=== PATIENT | female | born 1995 | race Caucasian/White ===

== ENCOUNTER 2016-09-22 10:59 | Emergency (ER) | payer OTHER ==
--- OUTSIDE RECORDS SUMMARY | 2016-09-22 12:02 | XMS REPORT | Continuity of Care Document ---
:1995 Author Organization [place] [address] Care Team Providers Name Role Phone Cristine Alicea Primary Care Provider [phone] Source Comments This disclosure is being made pursuant to the [employer] program and maynot contain all information available regarding this patient.[facility] Active Allergies and Adverse Reactions No Known Allergies Current Medications Be aware that medications may not be up to date as of this document. Alwaysverify current medications with the patient. No known medications Active Problems Problem Noted Date Psychosis 12/27/2011 Methamphetamine abuse 12/27/2011 Social History Tobacco Use Types Packs/Day Years Used Date Current Every Day Smoker Cigarettes 0.5 5 Alcohol Use Drinks/Week oz/Week Comments Yes "once in a while" Last Filed Vital Signs Vital Sign Reading Time Taken Blood Pressure 100/50 12/28/2011 8:00 AM CDT Pulse 88 12/29/2011 9:00 AM CDT Temperature 36.2 C (97.2 F) 12/29/2011 9:00 AM CDT Respiratory Rate 16 12/29/2011 9:00 AM CDT Height 1.6 m (5' 2.99") 12/23/2011 4:53 PM CDT Weight 51.846 kg (114 lb 4.8 oz) 12/23/2011 4:53 PM CDT Body Mass Index 20.25 12/23/2011 4:53 PM CDT Oxygen Saturation 98% 12/23/2011 1:18 PM CDT Plan of Care Health Maintenance Due Date Last Done Comments HPV Vaccine ([id number],M: 9-22) (1 of 3 - Female/Unknown 2004 3 Dose Series) Chlamydia Screening 2009 Tetanus/Pertussis (1 - Tdap) 2012 Pap Smear 2014 Retired-INFLUENZA VACCINE 11/13/2015 Results from Last 3 Months Not on file Insurance Payer Benefit Plan / Group Subscriber ID Type Phone Address COMMITTAL[employer]OURT ORDERED [employer] ORDERED [id number]
--- NOTE | 2016-09-22 12:08 | ERNOTE ---
ENT HPI Presenting Symptoms: other Time Seen by Provider: 09/22/16 11:55 Source: patient Exam Limitations: no limitations - Immun/Allergies/Home Medications Immunizations: IMMUNIZATION HX Immunizations Up to Date No History of Influenza Vaccine Yes Hx Pneumococcal Vaccination More Information Required Allergies/Adverse Reactions: Allergies Allergy/AdvReac Type Severity Reaction Status Date / Time No Known Allergies Allergy Verified 09/22/16 11:12 Home Medications: HOME MEDICATIONS Ciprofloxacin HCl/Dexameth [Ciprodex Otic Suspension] 4 drop OT BID #1 drops.susp 09/22/16 [Last Taken Unknown] - History of Present Illness Narrative: Patient has had bilateral ear pain and drainage for five months. She is coming today as she has insurance now, denies any other symptoms Review of Systems - Review of Systems Constitutional: Absent: recent illness, fever ENT: Present: See HPI, ear pain, ear discharge Respiratory: Absent: shortness of breath Cardiology: Absent: chest pain Gastrointestinal/Abdominal: Absent: nausea, abdominal pain Genitourinary: Present: no symptoms reported Musculoskeletal: Absent: back pain Neurological: Absent: headache - Patient's Past Medical History Patient History - Medical: Seizures Patient History - Cardiac/Respiratory: Other Patient History - Cancer: No Hx of Cancer Patient History - Surgical Procedures: Ear Tubes, T & A Patient History - Other: None LMP (females 10-50): now - Family History Mother Family History - Medical: Other Family History - Cardiac/Respiratory: Myocardial Infarction, Other Father Family History - Medical: Other - Social History Living Situations: spouse Abuse History: No History of abuse Psych History: No pertinent hx Smoking Status: Current every day smoker Alcohol Use: occasionally Drug Use: none - Immunizations Immunizations Up to Date: No Hx Pneumococcal Vaccination: More Information Required to Determine History of Influenza Vaccine: Yes Physical Exam - Physical Exam General Appearance: Present: wd/wn, alert, no apparent distress Eye Exam: Normal inspection: bilateral Ears, Nose, Throat: Present: other - ear canals bilateral swollen but still patent, draining white fluid, TM partially visualized, no erythema Respiratory: Present: no respiratory distress, normal breath sounds, lungs clear Cardiovascular/Chest: Present: regular rate, rhythm, no murmur Neurological Exam: Present: alert, oriented Skin Exam: Present: normal color, warm/dry ED Progress - Vital Signs Patient's Vital Signs:: I have reviewed the patient's vital signs. Vital Signs: Vital Signs 09/22/16 11:06 Temperature 36.1 C L Pulse Rate 81 Blood Pressure 112/52 O2 Sat by Pulse 100 Oximetry - Progress/Reassessment Chief Complaint: Earache Departure Clinical Impression: Otitis externa of both ears Qualifiers: Otitis externa type: unspecified type Chronicity: acute Qualified Code(s): H60.503 - Unspecified acute noninfective otitis externa, bilateral - Departure Disposition: Home self-care Condition: Good Instructions: Otitis Externa, [id number] Additional Instructions: call the ENT office for follow up appointment Referrals: Rema Serrato MD [Staff Physician] - Prescriptions: Ciprofloxacin HCl/Dexameth [Ciprodex Otic Suspension] 4 drop OT BID #1 drops.susp
[2016-09-22 12:43] VITALS: BP 117/84
== END 2016-09-22 12:15 | disposition home or self-care (01) ==
LOC: ER 10:59
DX: H60.503 Unspecified acute noninfective otitis externa, bilateral (principal); F17.200 Nicotine dependence, unspecified, uncomplicated